=== PATIENT | female | born 1990 | race Caucasian/White ===

== ENCOUNTER 2019-03-01 19:21 | Outpatient (CLI) | payer MEDICAID, OTHER ==
[~2019-03-01] VITALS: Ht 154.9 cm; Wt 62.2 kg
[~2019-03-01 19:21] MED LIST: PREN-93 PO
[2019-03-01 21:20] VITALS: BP 137/70; PULSE 58; RESP 17; Ht 154.9 cm; Wt 62.2 kg
== END 2019-03-02 | disposition home or self-care (01) ==
LOC: OBT 19:21 → L-D 19:22 → OBT 03-02
PROVIDERS: ATTEND Obstetrics & Gynecology
DX: O60.03 Preterm labor without delivery, third trimester (principal); Z3A.29 29 weeks gestation of pregnancy
CPT/HCPCS: 76815; 76817; 76818; 80307; 81003; 87086; G0463